=== PATIENT | male | born 1935 | race Caucasian/White ===

== ENCOUNTER 2018-06-09 10:33 | Emergency (ER) | payer OTHER ==
[~2018-06-09] VITALS: Ht 177.8 cm; Wt 99.8 kg
[2018-06-09 11:19] LABS: Basophils # (auto) 0 uL; Basophils % (auto) 0.3 % (0.0-2.0); Eosinophils # (auto) 0.1 uL; Eosinophils % (auto) 0.8 % (0.0-7.0); Hematocrit 38.9 % (41.0-53.0); Hemoglobin 12.8 g/dL (13.5-17.5); Lymphocytes % (auto) 14.2 % (10.0-50.0); Mean Corpuscular Hemoglobin 29.9 pg (28.0-32.0); Mean Corpuscular Volume 90.6 fL (80.0-100.0); Monocytes # (auto) 0.7 uL; Monocytes % (auto) 9.9 % (0.0-12.0); Neutrophils # (auto) 5.5 uL; Neutrophils % (auto) 74.8 % (37.0-80.0); Nucleated Red Blood Cells % 0.1 %; Platelet Count (auto) 166 10^3/uL (140-450); Red Cell Distribution Width 15.4 % (11.8-14.3); White Blood Cell 7.3 10^3/uL (4.4-10.8)
[2018-06-09] MEDS ORDERED: SILD50TA42 PO (11:22)
[2018-06-09] MEDS ORDERED: ALEN1TAB32 PO (11:22)
[2018-06-09] MEDS ORDERED: WARF5TAB71 PO (11:22)
[2018-06-09] MEDS ORDERED: ATOR40TA52 PO (11:22)
[2018-06-09] MEDS ORDERED: AML5T PO (11:22)
[2018-06-09] MEDS ORDERED: ENO100SY SC (11:22)
[2018-06-09] MEDS ORDERED: CAPT50TA5 PO (11:22)
[2018-06-09] MEDS ORDERED: TRIA0.1O TOP (11:22)
[2018-06-09] MEDS ORDERED: CITA-73 PO (11:22)
[2018-06-09 11:33] LABS: Alanine Aminotransferase 24 U/L (16-61); Albumin 3.5 g/dL (3.4-5.0); Anion Gap 7 (5-15); Blood Urea Nitrogen 21 mg/dL (7-18); Calcium 8.8 mg/dL (8.5-10.1); Carbon Dioxide 25 mmol/L (21-32); Chloride 108 mmol/L (98-107); Glucose 118 mg/dL (74-106); Magnesium 2.3 mg/dL (1.6-2.6); Potassium 4.2 mmol/L (3.5-5.1); Sodium 140 mmol/L (136-145)
[2018-06-09 11:39] LABS: Alkaline Phosphatase 178 U/L (45-117); Aspartate Aminotransferase 19 U/L (15-37); BUN/Creatinine Ratio 20.6; GFR African American 90 mL/min; GFR Non-African American 74 mL/min; Total Protein 7.5 g/dL (6.4-8.2)
[2018-06-09 13:10] VITALS: BP 155/80
[2018-06-09] MEDS ORDERED: HYDROcodone-ACET 5/325MG TAB PO ONE (13:30)
== END 2018-06-09 13:39 | disposition home or self-care (01) ==
LOC: EDBD 10:33 → ER 10:37
DX: I48.91 Unspecified atrial fibrillation (principal); B02.9 Zoster without complications; Z88.0 Allergy status to penicillin; Z88.6 Allergy status to analgesic agent; Z79.899 Other long term (current) drug therapy
CPT/HCPCS: 36415; 70450; 71046; 80053; 83735; 84484; 85025; 93005